=== PATIENT | female | born 1935 | race Caucasian/White ===

== ENCOUNTER 2021-01-11 14:12 | Inpatient (IN) ==
[2021-01-11] MEDS ORDERED: Morphine Sulfate Oral CONC 10 MG/0.5 ML ORAL.SYG SL PRN (14:32)
[2021-01-11] MEDS ORDERED: *HR* LORazepam Oral Conc 2 MG/ML SL PRN (14:34)
[2021-01-11] MEDS ORDERED: Haloperidol Oral Conc 10 MG/5 ML UDC PO PRN (14:35)
[2021-01-11] MEDS ORDERED: Acetaminophen 650 MG RECTAL SUPP RC PRN (14:36)
[2021-01-11] MEDS ORDERED: Hyoscyamine SL 0.125 MG TAB.SUBL SL PRN (14:38)
[2021-01-16 09:31] VITALS: BP 118/72; PULSE 78; RESP 14; TEMP 97.9; O2SAT 94
== END 2021-01-16 12:30 | disposition hospice, home (50) | DRG 951 ==
LOC: INPGRE 14:15
PROVIDERS: ADMIT Family Medicine; ATTEND Family Medicine